=== PATIENT | male | born 1940 | race Caucasian/White ===

== ENCOUNTER 2021-02-04 21:49 | Emergency (ER) | payer OTHER, MEDICARE ==
[2021-02-04] MEDS ORDERED: Lorazepam 2 MG/ML VIAL ONE (23:42)
== END 2021-02-04 23:55 | disposition home or self-care (01) ==
LOC: ERS 21:49
DX: Z04.3 Encounter for examination and observation following other accident (principal); I10 Essential (primary) hypertension; F03.90 Unspecified dementia, unspecified severity, without behavioral disturbance, psychotic disturbance, mood disturbance, and anxiety
CPT/HCPCS: 70450; 96372; J2060

== ENCOUNTER 2021-03-02 15:16 | Emergency (ER) | payer MEDICARE | END 2021-03-02 15:19 | disposition E | LOC: ERS 15:16 | DX: I46.9 Cardiac arrest, cause unspecified (principal) | CPT/HCPCS: 99285 ==